=== PATIENT | female | born 1995 | race African-American/Black ===

== ENCOUNTER → 2016-12-11 | Outpatient (CLI) | payer OTHER ==
--- NOTE | 2016-12-11 09:31 | REP ---
FIRST TRIMESTER ULTRASOUND: Real-time sonographic evaluation of the gravid uterus performed utilizing transabdominal technique. Gestational sac in the uterus contains a pole with a crown rump length of 18 mm corresponding to an estimated gestational age of 8 weeks 2 days. No heart motion is detected consistent with intrauterine demise. Right ovary could not be visualized. Left ovary measures 3.7 x 2.9 x 2.6 cm with a cystic structure likely representing a corpus luteum 1.6 x 1.4 x 0.9 cm. There is blood flow in the left ovary with duplex Doppler evaluation, with no torsion, RI is 0.42. I do not see significant free fluid. IMPRESSION: Intrauterine gestational sac contains a pole 18 mm corresponding to an estimated gestational age of 8 weeks 2 days. No heart motion is detected. Findings are compatible with intrauterine demise. Signed by Renny Quinn MD 12/11/2016 05:40 P
== END ==
LOC: M RAD 08:37
PROVIDERS: ATTEND Nurse Practitioner Women's Health
DX: Z36 Encounter for antenatal screening of mother (principal); Z3A.08 8 weeks gestation of pregnancy

== ENCOUNTER 2016-12-23 15:27 | Emergency (ER) | payer OTHER ==
[~2016-12-23] VITALS: Ht 167.6 cm; Wt 60.8 kg
[2016-12-23] MEDS ORDERED: FLINCHW9 PO (15:41)
[2016-12-23 16:55] LABS: BASO % 0.3 % (0.0-1.0); EOS # 0.2 K/mm3 (0.0-0.50); EOS % 3.6 % (0.0-3.0); LARGE UNSTAINED CELL # 0.1 K/mm3 (0.0-0.4); LARGE UNSTAINED CELL % 1.2 % (0.0-4.0); LYMPH # 1.4 K/mm3 (1.5-6.5); LYMPH % 20.3 % (24.0-44.0); MEAN CORPUSCULAR HEMOGLOBIN 29.6 pg (27.0-33.0); MEAN CORPUSCULAR HGB CONC 31.7 g/dl (32.0-36.5); MEAN CORPUSCULAR VOLUME 93.3 fl (80.0-96.0); MONO # 0.3 K/mm3 (0.0-0.8); MONO % 3.9 % (0.0-5.0); NEUTROPHILS # 4.5 K/mm3 (1.8-7.7); NEUTROPHILS % 70.7 % (36.0-66.0); PLATELET COUNT, AUTOMATED 327 k/mm3 (150-450); RED CELL DISTRIBUTION WIDTH 13.5 % (11.5-14.5); WHITE BLOOD COUNT 6.3 K/mm3 (4.0-10.0)
[2016-12-23 17:05] LABS: CONTROL LINE HCG INT CTR LINE PRESENT
[2016-12-23 17:14] LABS: ALBUMIN 3.7 GM/DL (3.2-5.2); ALKALINE PHOSPHATASE 66 U/L (45-117); ALT/SGPT 34 U/L (12-78); ANION GAP 9 MEQ/L (8-16); AST/SGOT 13 U/L (15-37); BILIRUBIN,TOTAL 0.2 MG/DL (0.2-1.0); BLOOD UREA NITROGEN 6 MG/DL (7-18); CALCIUM LEVEL 8.6 MG/DL (8.5-10.1); CARBON DIOXIDE LEVEL 26 MEQ/L (21-32); CHLORIDE LEVEL 107 MEQ/L (98-107); CREATININE FOR GFR 0.59 MG/DL (0.55-1.02); GLOMERULAR FILTRATION RATE > 60.0 (>60); GLUCOSE, FASTING 86 MG/DL (70-105); POTASSIUM SERUM 3.9 MEQ/L (3.5-5.1); SODIUM LEVEL 142 MEQ/L (136-145); TOTAL PROTEIN 7.4 GM/DL (6.4-8.2)
[2016-12-23 18:57] LABS: HCG, SERUM QUANTITATIVE 2444 MIU/ML
--- NOTE | 2016-12-23 20:00 | REPUSA ---
CLINICAL HISTORY: SAB last week, given "cervix pill". Rule out RPOC. TECHNIQUE: Realtime sonographic images were obtained in multiple projections. COMMENTS: Last menstrual period was on 10/13/2016. GA by LMP 10+ weeks. 1, para 0. Uterus measures 7.9 x 5.0 x 5.5. Endometrium measures 22.0 mm. It is thickened, irregular with posit henrique blood flow most compatible with RPOC. The right ovary measures 3.5 x 1.6 x 2.5 cm, RI 0.53. The left ovary measures 2.8 x 1.8 x 2.0 cm, RI 0.41. No free fluid noted in clu-de-sac. IMPRESSION: No evidence of an IUP. Thickened, irregular endometrium with positive blood flow most compatible with RPOC. Thank you for your kind referral of this patient. We appreciate the opportunity to participate in thi s patient's care.
[2016-12-23] MEDS ORDERED: ACETAMINOPHEN 325 MG TAB PO ONE (20:30)
[2016-12-23] MEDS ORDERED: TYLE325C PO (20:40)
[2016-12-23 20:49] VITALS: BP 116/66
[2016-12-23] MEDS ORDERED: TYLE325T5 PO (21:03)
[2016-12-23] MEDS ORDERED: COLA100C3 PO (21:03)
== END 2016-12-23 21:13 | disposition home or self-care (01) ==
LOC: M ED 16:09
DX: O03.4 Incomplete spontaneous abortion without complication (principal); Z79.899 Other long term (current) drug therapy

== ENCOUNTER 2017-07-09 14:52 | Emergency (ER) | payer OTHER ==
[~2017-07-09] VITALS: Ht 162.6 cm; Wt 62.3 kg
[~2017-07-09 14:52] MED LIST: COLA100C5 PO; FLINCHW9 PO; TYLE325C PO; TYLE325T5 PO
[2017-07-09 14:53] VITALS: BP 120/77
== END 2017-07-09 15:45 | disposition left against medical advice (07) ==
LOC: M ED 14:52
DX: Z53.21 Procedure and treatment not carried out due to patient leaving prior to being seen by health care provider (principal)

== ENCOUNTER → 2017-07-10 | Outpatient (CLI) | payer OTHER ==
[~2017-07-10] MED LIST changes: +AUGM875T28 PO; +Prenatal Vitamins PO
--- NOTE | 2017-07-10 09:41 | REP ---
Clinical: Dating and viability. Technique: First trimester transabdominal and transvaginal ultrasound examination with color Doppler evaluation. Findings: An intrauterine gestational sac with yolk sac identified without pole. Mean sac diameter of 8.2 mm corresponds to 5 weeks 3 days gestational age. No uterine abnormalities are identified. The bilateral maternal ovaries are normal. No pelvic free fluid or adnexal mass lesion. Impression: Findings suggest early uterine versus spontaneous /blighted ovum. Correlation with serial HCG levels and repeat ultrasound as necessary. Signed by Hector Hanks MD 07/10/2017 09:32 A
== END ==
LOC: M RAD 08:04
PROVIDERS: ATTEND Physician Assistant
DX: Z32.01 Encounter for pregnancy test, result positive (principal); Z3A.00 Weeks of gestation of pregnancy not specified

== ENCOUNTER 2017-07-13 14:49 | Emergency (ER) | payer OTHER ==
[~2017-07-13] VITALS: Ht 162.6 cm; Wt 63.2 kg
[~2017-07-13 14:49] MED LIST changes: -AUGM875T28 PO; -Prenatal Vitamins PO
[2017-07-13] MEDS ORDERED: Prenatal Vitamins PO (15:45)
[2017-07-13] MEDS ORDERED: AUGM875T28 PO (21:11)
[2017-07-13] MEDS ORDERED: AUGMENTIN 875 MG TAB PO ONE (21:15)
[2017-07-13 21:20] VITALS: BP 108/75
== END 2017-07-13 21:22 | disposition home or self-care (01) ==
LOC: M ED 14:49
DX: O99.511 Diseases of the respiratory system complicating pregnancy, first trimester (principal); J01.90 Acute sinusitis, unspecified; Z3A.01 Less than 8 weeks gestation of pregnancy; Z87.891 Personal history of nicotine dependence
CPT/HCPCS: 71020; 87804; 99283; G0463